=== PATIENT | male | born 2000 | race Caucasian/White ===

== ENCOUNTER 2023-10-10 07:40 | Emergency (ER) | payer OTHER ==
[2023-10-10 08:08] VITALS: O2SAT 100
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
[2023-10-10 08:28] VITALS: BP 128/82
== END 2023-10-10 08:23 | disposition home or self-care (01) ==
LOC: ED 07:40
DX: H53.2 Diplopia (principal)
CPT/HCPCS: 99282; 99283

== ENCOUNTER 2023-10-12 10:58 | Emergency (ER) | payer OTHER ==
[2023-10-12 11:29] VITALS: BP 123/68; O2SAT 100
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
--- NOTE | 2023-10-12 12:37 | CT Report ---
PROCEDURE: Head WO INDICATIONS: head inj TECHNIQUE: Noncontrast 4.5 mm thick angled axial sections acquired from the foramen magnum to the vertex. For r adiation dose reduction, the following was used: automated exposure control, adjustment of mA and/or kV according to patient size. COMPARISON: CT head 10/09/2023 FINDINGS: Image quality: Excellent. CSF spaces: Basal cisterns are patent. No extra-axial fluid collections. Ventricles are normal in size and shape. Brain: No midline shift. No intracranial masses or hemorrhage. Fried-white matter interface is norm al. Skull and face: Calvarium and visualized facial bones are intact, without suspicious lesions. Sinuses: Visualized sinuses and mastoids are clear. IMPRESSION: No acute intracranial pathology. Reviewed by: Idania Carson MD on 10/12/2023 12:36 PM PDT Approved by: Idania Carson MD on 10/12/2023 12:36 PM PDT Station ID: [id number]
== END 2023-10-12 12:47 | disposition home or self-care (01) ==
LOC: ED 10:58
DX: F07.81 Postconcussional syndrome (principal); V86.96XA Unspecified occupant of dirt bike or motor/cross bike injured in nontraffic accident, initial encounter
CPT/HCPCS: 99284

== ENCOUNTER 2023-12-13 19:34 | Emergency (ER) | payer OTHER ==
[2023-12-13 19:56] VITALS: BP 129/61; O2SAT 98
--- NOTE | 2023-12-13 20:11 | ED Physician Documentation ---
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 No other injuries. Pain is moderate.) PD PAST MEDICAL HISTORY - Past Medical History Cardiovascular: None Respiratory: None Neuro: None Endocrine/Autoimmune: None GI: None : None HEENT: None Psych: None Musculoskeletal: None Derm: None - Past Surgical History Past Surgical History: Yes HEENT: Tonsil/Adenoidectomy, Other - Present Medications Home Medications: Ambulatory Orders Medication Instructions Recorded Confirmed Ibuprofen [Motrin] 800 mg PO Q8H PRN #30 tablet 12/13/23 - Allergies Allergies/Adverse Reactions: Allergies Allergy/AdvReac Type Severity Reaction Status Date / Time amoxicillin AdvReac Nausea Verified 12/13/23 19:41 - Social History Does the pt smoke?: No Smoking Status: Never smoker Does the pt drink ETOH?: Yes Does the pt have substance abuse?: No - Immunizations Immunizations are current?: Yes - POLST Patient has POLST: No PD ED PE NORMAL - Vitals Vital signs reviewed: Yes - General General: Alert and oriented X 3, No acute distress - Extremities Extremities: Other (He is exquisitely tender with significant swelling at the PIP of the right index finger. No deformity.) - Neuro Neuro: Alert and oriented X 3, Normal speech Results - Vitals Vitals: Vital Signs - 24 hr 12/13/23 19:41 Temperature 36.3 C L Heart Rate 72 Respiratory 18 Rate Blood Pressure 129/61 O2 Saturation 98 Oxygen O2 Source Room air - Rads (name of study) R finger XR Relevant Findings:: Final report received (Right second finger x-ray demonstrating acute comminuted and slightly displaced intra-articular fracture of the proximal phalangeal base), EMP independent interpretation of test Procedures - Splint (location) - Minor R 2nd finger Splint applied by: Physician Type of splint: Metal foam finger splint Departure - Departure Disposition: 01 Home, Self Care Clinical Impression: Fracture of phalanx of right hand, closed Qualifiers: Encounter type: initial encounter Finger: index finger Phalanx: middle Fracture alignment: displaced Qualified Code(s): S62.620A - Displaced fracture of middle phalanx of right index finger, initial encounter for closed fracture Condition: Good Record reviewed to determine appropriate education?: Yes Instructions: ED Fx Finger Closed Prescriptions: Ibuprofen [Motrin] 800 mg PO Q8H PRN #30 tablet PRN Reason: PAIN &/OR FEVER Comments: [place] 2 [place] further evaluation and treatment, the fracture is fairly what we call comminuted so may need further work done. Keep the splint on and dry until then. [place] on CD with you to aid in that appointment. Forms: PCP List, Activity restrictions
[2023-12-13] MEDS: IBUPROFEN 800 MG TABLET PO STA (20:26)
--- NOTE | 2023-12-13 20:30 | XRAY Report ---
PROCEDURE: Finger(s) RT INDICATIONS: injury to second digit right hand TECHNIQUE: 3 views of the second finger were acquired. COMPARISON: None. FINDINGS: Bones: Slightly comminuted fracture involving the volar aspect of second middle phalangeal base with volar displacement of fracture fragment, fracture line extending to second PIP joint and slight dors al subluxation at second PIP joint. No suspicious bony lesions. Soft tissues: No suspicious soft tissue calcifications or masses. IMPRESSION: Acute comminuted and slightly displaced intra-articular fracture involving second middle phalangeal b ase as above. Reviewed by: George Hua MD on 12/13/2023 8:28 PM PDT Approved by: George Hua MD on 12/13/2023 8:28 PM PDT Station ID: [id number]
== END 2023-12-13 20:54 | disposition home or self-care (01) ==
LOC: ED 19:34
DX: S62.620A Displaced fracture of middle phalanx of right index finger, initial encounter for closed fracture (principal); X58.XXXA Exposure to other specified factors, initial encounter; Y93.64 Activity, baseball
CPT/HCPCS: 73140; 99283; 99284; A9270